=== PATIENT | female | born 1970 | race Asian ===

== ENCOUNTER 2018-07-27 16:01 | Emergency (ER) | payer MEDICAID, OTHER ==
[~2018-07-27] VITALS: Ht 162.6 cm; Wt 80.0 kg
[2018-07-27 16:08] VITALS: BP 139/84
[2018-07-27] MEDS ORDERED: LIDOCAINE-MPF 1%, 5ML ONE (16:24)
[2018-07-27] MEDS ORDERED: LIDOCAINE-MPF 1%, 5ML INFIL ONE (16:30)
[2018-07-27] MEDS ORDERED: MONT4GRA PO (16:46)
[2018-07-27] MEDS ORDERED: METF500T17 PO (16:47)
[2018-07-27] MEDS ORDERED: RANI-276 PO (16:47)
[2018-07-27] MEDS ORDERED: PERP2TAB PO (16:47)
[2018-07-27] MEDS ORDERED: FLUT9.9S NAS (16:48)
[2018-07-27] MEDS ORDERED: CETI10CA PO (16:48)
== END 2018-07-27 17:18 | disposition home or self-care (01) ==
LOC: ED 17:09
DX: S60.111A Contusion of right thumb with damage to nail, initial encounter (principal); E11.9 Type 2 diabetes mellitus without complications; X58.XXXA Exposure to other specified factors, initial encounter; Y99.0 Civilian activity done for income or pay; Y93.89 Activity, other specified; Y92.69 Other specified industrial and construction area as the place of occurrence of the external cause
CPT/HCPCS: 11740; 99283

== ENCOUNTER 2018-10-10 18:19 | Emergency (ER) | payer OTHER ==
[~2018-10-10] VITALS: Ht 162.6 cm; Wt 82.0 kg
[~2018-10-10 18:19] MED LIST: CETI10CA PO; FLUT9.9S NAS; METF500T17 PO; MONT4GRA PO; PERP2TAB PO; RANI-448 PO
[2018-10-10 18:48] VITALS: BP 142/111
== END 2018-10-10 20:00 | disposition home or self-care (01) ==
LOC: ED 19:57
DX: J20.9 Acute bronchitis, unspecified (principal); H10.32 Unspecified acute conjunctivitis, left eye; E11.9 Type 2 diabetes mellitus without complications
CPT/HCPCS: 71046; 99283

== ENCOUNTER 2019-02-06 02:21 | Emergency (ER) | payer OTHER ==
[2019-02-06 02:24] VITALS: BP 151/89
--- NOTE | 2019-02-06 03:04 | NUR ---
FIRST CONTACT WITH PT. PT C/O LEFT ETE ITCHING/IRRITATION SINCE TODAY. PT STATES IT STARTS AFTER LAB CLASS AT [facility]. VISUAL ACUITY INTACT. PT'S AOX4. RESPS EVEN AND UNLABORED.
[2019-02-06] MEDS ORDERED: FLUORESCEIN OPHTHALMIC 1 MG STRIP ONE (03:15)
[2019-02-06] MEDS ORDERED: FLUORESCEIN OPHTHALMIC 1 MG STRIP EACHEYE ONE (03:30)
--- NOTE | 2019-02-06 03:38 | NUR ---
IRRIGATING BOTH EYES AT THIS TIME. PT TOLERATED WELL.
--- NOTE | 2019-02-06 04:08 | NUR ---
PT GIVEN DC INSTRUCTIONS. PT AMB TO DC WITH STEADY GAIT. NO ACUTE DISTRESS AT DC.
== END 2019-02-06 04:08 | disposition home or self-care (01) ==
LOC: ED 04:03
DX: H10.233 Serous conjunctivitis, except viral, bilateral (principal)
CPT/HCPCS: 99282

== ENCOUNTER 2019-02-11 09:05 | Emergency (ER) | payer OTHER ==
[~2019-02-11] VITALS: Ht 162.6 cm; Wt 82.2 kg
[2019-02-11 09:11] VITALS: BP 141/84
[2019-02-11] MEDS ORDERED: PROPARACAINE OPHTH 0.5%, 15ML EACHEYE ONE (09:30)
[2019-02-11] MEDS ORDERED: FLUORESCEIN OPHTHALMIC 1 MG STRIP EACHEYE ONE (09:30)
--- NOTE | 2019-02-11 09:32 | NUR ---
SUPERVISOR GARAGE: PT TO ROOM FROM LOBBY.
--- NOTE | 2019-02-11 09:33 | NUR ---
TASK RN: AMBULATORY TO ROOM FROM LOBBY
[2019-02-11] MEDS ORDERED: METF500T17 PO (09:37)
--- NOTE | 2019-02-11 10:04 | NUR ---
pt upright on gurney awake & comfortable, responds approp to staff, NAD, comfort measures provided, call light within reach.
[2019-02-11] MEDS ORDERED: FLUORESCEIN OPHTHALMIC 1 MG STRIP ONE (10:05)
[2019-02-11] MEDS ORDERED: PROPARACAINE OPHTH 0.5%, 15ML ONE (10:06)
--- NOTE | 2019-02-11 10:48 | NUR ---
Patient given discharge instructions and Rx, they have confirmed that they understand the instructions. Patient ambulatory with steady gait.
== END 2019-02-11 10:49 | disposition home or self-care (01) ==
LOC: ED 10:38
DX: H10.12 Acute atopic conjunctivitis, left eye (principal); E11.9 Type 2 diabetes mellitus without complications
CPT/HCPCS: 99283